=== PATIENT | female | born 2005 | race African-American/Black ===

== ENCOUNTER 2025-06-25 18:46 | Emergency (ER) | payer MEDICAID ==
[~2025-06-25] VITALS: Ht 167.6 cm; Wt 134.6 kg
[2025-06-25 19:18] VITALS: TEMP 98.6
[2025-06-25 21:15] LABS: PLATELET COUNT (AUTO) 539 K/uL (150-450); RED BLOOD CELL COUNT(AUTO) 4.67 MIL/uL (4.00-5.20); RED CELL DISTRIBUTION WIDTH 19.2 % (11.5-14.5); WHITE BLOOD COUNT (AUTO) 5.9 K/uL (4.5-11.0)
[2025-06-25] MEDS: PB/HYOSCY/ATR/SCOP/LIDO/MAALOX 55 ML BOTTLE PO ONE (21:18)
[2025-06-25] MEDS: ONDANSETRON 4 MG TABLET PO ONE (21:18)
[2025-06-25 21:24] LABS: CALCIUM, TOTAL 8.6 mg/dL (8.8-10.5); CREATININE 0.91 mg/dL (0.60-1.30); GLOMERULAR FILTR. RATE CALC > 60 mL/min (>60); GLUCOSE,RANDOM 96 mg/dL (70-110); SODIUM SERUM 141 mmol/L (136-145); UREA NITROGEN, BLOOD 13 mg/dL (7-18)
[2025-06-25 21:37] LABS: ASPARTATE AMINOTRANSFERASE 26 U/L (15-37); HCG,QUANTITATIVE < 1 mIU/mL (0-6); TOTAL PROTEIN, SERUM 7.0 g/dL (6.4-8.2)
[2025-06-25 21:59] LABS: RBC MORPHOLOGY COMMENT ABNORMAL RBC MORPH
[2025-06-25] MEDS ORDERED: ONDA-104 PO (22:38)
[2025-06-25 22:50] VITALS: BP 129/88; PULSE 88; RESP 16; O2SAT 98
== END 2025-06-25 22:50 | disposition home or self-care (01) ==
LOC: EMS 19:08
DX: K52.9 Noninfective gastroenteritis and colitis, unspecified (principal); N89.8 Other specified noninflammatory disorders of vagina
CPT/HCPCS: 99283; 80048; 80076; 83690; 84702; 85025; 36415; Q0162